=== PATIENT | female | born 1965 | race Two or more races ===

== ENCOUNTER 2016-12-08 15:44 | Inpatient (IN) | payer MEDICAID ==
[~2016-12-08] VITALS: Ht 165.1 cm; Wt 76.3 kg
[~2016-12-08 15:44] MED LIST: CEPH-37 PO; CYCL0.05 OP; INSU70IN9 SC; INSUINJ; LEVO150T10 PO; LOS50T PO
[2016-12-08] MEDS ORDERED: SODIUM CHLORIDE 0.9% 1,000 ML IV ONE (16:38)
[2016-12-08 17:04] LABS: Basophils # (auto) 0 uL; Basophils % (auto) 0.2 % (0.0-2.0); Eosinophils # (auto) 0.1 uL; Eosinophils % (auto) 0.6 % (0.0-7.0); Hematocrit 44.5 % (36.0-46.0); Lymphocytes # (auto) 2.2 uL; Lymphocytes % (auto) 27.4 % (10.0-50.0); Mean Corpuscular Hemoglobin 30.1 pg (28.0-32.0); Mean Corpuscular Hgb Conc. 33.6 g/dL (32.0-36.0); Mean Corpuscular Volume 89.6 fL (80.0-100.0); Mean Platelet Volume 8.9 fL (7.4-10.4); Monocytes # (auto) 0.3 uL; Monocytes % (auto) 4.1 % (0.0-12.0); Neutrophils # (auto) 5.5 uL; Neutrophils % (auto) 67.7 % (37.0-80.0); Platelet Count (auto) 309 10^3/uL (140-450); Red Cell Distribution Width 11.9 % (11.6-16.0); White Blood Cell 8.1 10^3/uL (4.4-10.8)
[2016-12-08 17:25] LABS: Albumin 4.3 g/dL (3.4-5.0); Calcium 10.8 mg/dL (8.5-10.1); Magnesium 2.3 mg/dL (1.6-2.6); Potassium 3.9 mmol/L (3.5-5.1)
[2016-12-08 17:27] LABS: BUN/Creatinine Ratio 23.5
[2016-12-08 17:38] LABS: Bilirubin, Total 1.1 mg/dL (0.2-1.0); Total Protein 8.3 g/dL (6.4-8.2)
[2016-12-08] MEDS ORDERED: SODIUM CHLORIDE 0.9% 2,000 ML IV ONE (17:45)
[2016-12-08] MEDS ORDERED: DEXTROSE (50%) 50ML SYRG IV PRN (20:00)
[2016-12-08 20:14] VITALS: BP 139/87
[2016-12-08] MEDS: SODIUM CHLORIDE 0.9% 1,000 ML IV SCH (20:33)
[2016-12-08 21:07] VITALS: BP 139/87
[2016-12-08] MEDS: CYCLOSPORINE 0.05% OP SCH (21:51)
[2016-12-08] MEDS: LOSARTAN POTASSIUM 50 MG TAB PO SCH (21:51)
[2016-12-08] MEDS: ZOLPIDEM TARTRATE 5 MG TAB PO PRN (21:51)
[2016-12-08] MEDS: ACCU-CHEK COMFORT CURVE STRIP VI SCH (21:52)
[2016-12-08] MEDS: InsuLIN REG 1unit/0.01ml Soln (100units/ml) SC SCH (21:55)
[2016-12-09 05:12] VITALS: BP 119/62
[2016-12-09] MEDS: LEVOTHYROXINE SODIUM 50 MCG TAB PO SCH (06:38)
[2016-12-09] MEDS: ACCU-CHEK COMFORT CURVE STRIP VI SCH ×5 (06:38→22:13)
[2016-12-09] MEDS: InsuLIN REG 1unit/0.01ml Soln (100units/ml) SC SCH ×5 (06:46→22:24)
[2016-12-09] MEDS ORDERED: INSULIN 70/30 1unit/0.01ml Susp (100units/ml) SC SCH (07:00)
[2016-12-09 07:13] LABS: Basophils # (auto) 0 uL; Basophils % (auto) 0.7 % (0.0-2.0); Eosinophils # (auto) 0.1 uL; Eosinophils % (auto) 3.3 % (0.0-7.0); Hematocrit 37.4 % (36.0-46.0); Hemoglobin 12.6 g/dL (12.2-16.2); Lymphocytes # (auto) 2.1 uL; Lymphocytes % (auto) 46.7 % (10.0-50.0); Mean Corpuscular Hemoglobin 30.5 pg (28.0-32.0); Mean Corpuscular Hgb Conc. 33.7 g/dL (32.0-36.0); Mean Corpuscular Volume 90.3 fL (80.0-100.0); Mean Platelet Volume 8.1 fL (7.4-10.4); Monocytes # (auto) 0.3 uL; Monocytes % (auto) 6.9 % (0.0-12.0); Neutrophils # (auto) 1.9 uL; Neutrophils % (auto) 42.4 % (37.0-80.0); Platelet Count (auto) 247 10^3/uL (140-450); Red Cell Distribution Width 12.2 % (11.6-16.0); White Blood Cell 4.4 10^3/uL (4.4-10.8)
[2016-12-09 07:38] LABS: Calcium 8.5 mg/dL (8.5-10.1); Potassium 3.8 mmol/L (3.5-5.1)
[2016-12-09 07:40] LABS: BUN/Creatinine Ratio 32.6
[2016-12-09 08:34] VITALS: BP 125/65
[2016-12-09] MEDS: SODIUM CHLORIDE 0.9% 1,000 ML IV SCH (09:20)
[2016-12-09] MEDS: CYCLOSPORINE 0.05% OP SCH ×2 (10:00→22:24)
[2016-12-09] MEDS: LOSARTAN POTASSIUM 50 MG TAB PO SCH ×2 (10:32→22:13)
[2016-12-09 12:47] VITALS: BP 123/61
[2016-12-09 14:19] LABS: Urine Bilirubin Negative (Negative); Urine Blood Negative /uL (Negative); Urine Color Yellow (Yellow); Urine Glucose 4+ mg/dL (Normal); Urine Ketone Negative (Negative); Urine Nitrite Negative (Negative); Urine RBC <1 /hpf (0 - 4); Urine Squamous Epithelial Cell FEW /hpf (<5); Urine Urobilinogen Normal (Negative); Urine pH 5.5 (5.0-8.0)
[2016-12-09] MEDS ORDERED: LORazepam 2MG/ML-1ML VIAL IV ONE (14:45)
[2016-12-09 16:35] VITALS: BP 141/71
[2016-12-09 22:00] VITALS: BP 127/68
[2016-12-09] MEDS: INSULIN DETEMIR(LEVEMIR) 1unit/0.01ml Soln (100units/ml) SC SCH (22:13)
[2016-12-09] MEDS: ZOLPIDEM TARTRATE 5 MG TAB PO PRN (23:03)
[2016-12-10 05:47] VITALS: BP 108/69
[2016-12-10] MEDS: InsuLIN REG 1unit/0.01ml Soln (100units/ml) SC SCH ×2 (06:35→11:27)
[2016-12-10] MEDS: LEVOTHYROXINE SODIUM 50 MCG TAB PO SCH (06:35)
[2016-12-10] MEDS: ACCU-CHEK COMFORT CURVE STRIP VI SCH ×2 (06:35→11:27)
[2016-12-10 07:22] LABS: Potassium 3.7 mmol/L (3.5-5.1)
[2016-12-10 07:33] LABS: BUN/Creatinine Ratio 26.4; Calcium 9.2 mg/dL (8.5-10.1)
[2016-12-10 08:43] VITALS: BP 144/84
[2016-12-10] MEDS: CYCLOSPORINE 0.05% OP SCH (08:57)
[2016-12-10] MEDS: LOSARTAN POTASSIUM 50 MG TAB PO SCH (08:58)
[2016-12-10] MEDS: INSULIN DETEMIR(LEVEMIR) 1unit/0.01ml Soln (100units/ml) SC SCH (10:00)
== END 2016-12-10 12:54 | disposition home or self-care (01) | DRG 47 ==
LOC: ER 15:44 → OVERFLOW 15:45 → SUATTDRO 18:49 → CENTRAL 19:30
PROVIDERS: ADMIT Nurse Practitioner Acute Care; ATTEND Internal Medicine
DX: G45.9 Transient cerebral ischemic attack, unspecified (principal); E11.65 Type 2 diabetes mellitus with hyperglycemia; I10 Essential (primary) hypertension; E87.1 Hypo-osmolality and hyponatremia; E78.5 Hyperlipidemia, unspecified; E83.52 Hypercalcemia; E66.9 Obesity, unspecified; H91.92 Unspecified hearing loss, left ear; E03.9 Hypothyroidism, unspecified; Z87.442 Personal history of urinary calculi; Z79.4 Long term (current) use of insulin; Z82.49 Family history of ischemic heart disease and other diseases of the circulatory system; Z83.3 Family history of diabetes mellitus; Z82.3 Family history of stroke; Z68.28 Body mass index [BMI] 28.0-28.9, adult; Z86.73 Personal history of transient ischemic attack (TIA), and cerebral infarction without residual deficits
CPT/HCPCS: 36415; 70450; 70551; 71020; 80048; 80053; 81001; 82962; 83036; 83735; 83970; 84443; 85025; 93005; 94761; 96360; J1815

== ENCOUNTER 2017-02-03 03:26 | Inpatient (IN) | payer MEDICAID ==
[~2017-02-03] VITALS: Ht 167.6 cm; Wt 82.4 kg
[2017-02-03 04:12] LABS: Basophils # (auto) 0 uL; Basophils % (auto) 0.2 % (0.0-2.0); CONDITION Y; Eosinophils # (auto) 0 uL; Eosinophils % (auto) 0.5 % (0.0-7.0); Hematocrit 36.6 % (36.0-46.0); Hemoglobin 12.5 g/dL (12.2-16.2); Lymphocytes # (auto) 0.9 uL; Lymphocytes % (auto) 8.5 % (10.0-50.0); Mean Corpuscular Hemoglobin 30.5 pg (28.0-32.0); Mean Corpuscular Hgb Conc. 34.2 g/dL (32.0-36.0); Mean Corpuscular Volume 89.3 fL (80.0-100.0); Mean Platelet Volume 7.9 fL (7.4-10.4); Monocytes # (auto) 0.8 uL; Monocytes % (auto) 7.6 % (0.0-12.0); Neutrophils # (auto) 8.7 uL; Neutrophils % (auto) 83.2 % (37.0-80.0); Platelet Count (auto) 307 10^3/uL (140-450); Red Cell Distribution Width 12.8 % (11.6-16.0); White Blood Cell 10.4 10^3/uL (4.4-10.8)
[2017-02-03] MEDS ORDERED: IBUPROFEN 800 MG TAB PO ONE (04:15)
[2017-02-03] MEDS ORDERED: IBUPROFEN 600 MG TAB PO ONE (04:15)
[2017-02-03 04:28] LABS: Albumin 3.4 g/dL (3.4-5.0); Anion Gap 11 (5-15); Aspartate Aminotransferase 64 U/L (15-37); BUN/Creatinine Ratio 19.4; Blood Urea Nitrogen 13 mg/dL (7-18); Calcium 8.9 mg/dL (8.5-10.1); Carbon Dioxide 25 mmol/L (21-32); Chloride 103 mmol/L (98-107); GFR African American 120 mL/min; GFR Non-African American 99 mL/min; Glucose 199 mg/dL (74-106); Magnesium 1.7 mg/dL (1.6-2.6); Potassium 4.1 mmol/L (3.5-5.1); Sodium 139 mmol/L (136-145)
[2017-02-03 04:33] LABS: Alkaline Phosphatase 149 U/L (45-117); Bilirubin, Total 1.1 mg/dL (0.2-1.0); INR 0.89 (0.9-1.15); Partial Thromboplastin Time 23.3 sec (22.64-33.71); Prothrombin Time 9.7 sec (9.37-12.3); Total Protein 7.4 g/dL (6.4-8.2)
[2017-02-03] MEDS ORDERED: metroNIDAZOLE 500 MG TAB PO ONE (05:15)
[2017-02-03] MEDS ORDERED: SODIUM CHLORIDE 0.9% 1,000 ML IV ONE (05:15)
[2017-02-03] MEDS ORDERED: cefTRIAXone 1GM/50ML D5W 50 ML IV ONE (05:15)
[2017-02-03 05:18] LABS: B-Type Natriuretic Peptide 47.38 pg/mL (0-100)
[2017-02-03 05:27] LABS: Temperature: 22.5 C (20.0-25.0)
[2017-02-03 05:28] LABS: Urine Bilirubin Negative (Negative); Urine Blood Negative /uL (Negative); Urine Color Yellow (Yellow); Urine Ketone Negative (Negative); Urine RBC <1 /hpf (0 - 4); Urine Squamous Epithelial Cell FEW /hpf (<5); Urine Urobilinogen Normal (Negative)
[2017-02-03 05:29] LABS: Urine Glucose 3+ mg/dL (Normal); Urine Nitrite POSITIVE (Negative)
[2017-02-03] MEDS ORDERED: ACETAMINOPHEN 325 MG TAB PO ONE ×2 (11:03→11:15)
[2017-02-03] MEDS ORDERED: ONDANSETRON HCL 4 MG/2 ML VIAL ONE (11:09)
[2017-02-03] MEDS ORDERED: VANCOMYCIN PER PHARMACY 0 MG IV SCH (11:15)
[2017-02-03] MEDS ORDERED: SODIUM CHLORIDE 0.9% 2,000 ML IV ONE ×2 (11:15)
[2017-02-03] MEDS ORDERED: ACETAMINOPHEN 650 MG RECT SUPP PR PRN (11:15)
[2017-02-03] MEDS ORDERED: NOREPINEPHRINE BITARTRATE 250 ML IV SCH (11:15)
[2017-02-03] MEDS ORDERED: NITROGLYCERIN 0.4 MG SL TAB SL PRN (11:30)
[2017-02-03] MEDS ORDERED: DEXTROSE (50%) 50ML SYRG IV PRN (11:30)
[2017-02-03] MEDS ORDERED: MORPHINE SULF INJ 2 MG/ML SYRINGE 1ML IV PRN (11:30)
[2017-02-03] MEDS ORDERED: ONDANSETRON HCL 4 MG/2 ML VIAL IV ONE (11:30)
[2017-02-03] MEDS: VANCOMYCIN 1GM/250ML D5W 250 ML IV SCH (12:30)
[2017-02-03] MEDS: FAMOTIDINE 20 MG TAB PO SCH ×2 (12:30→21:59)
[2017-02-03] MEDS: ACCU-CHEK COMFORT CURVE STRIP VI SCH ×3 (12:30→22:00)
[2017-02-03] MEDS: SODIUM CHLORIDE 0.9% 1,000 ML IV SCH ×2 (12:30→21:58)
[2017-02-03] MEDS: InsuLIN REG 1unit/0.01ml Soln (100units/ml) SC SCH ×3 (12:33→22:00)
[2017-02-03 13:58] LABS: Lactic Acid w/Reflex 2.3 mmol/L (0.4-2.0)
[2017-02-03 14:26] LABS: REFLEX LACTIC ACID YES OR NO YES
[2017-02-03] MEDS: IBUPROFEN 100MG/5ML ORAL SUSP 100 MG/5 ML UD PO PRN (15:50)
[2017-02-03] MEDS: ACETAMINOPHEN 325 MG TAB PO PRN (15:51)
[2017-02-03] MEDS: ONDANSETRON HCL 4 MG/2 ML VIAL IV PRN ×2 (15:51→22:04)
[2017-02-03 17:11] VITALS: BP 163/78
[2017-02-03 17:40] VITALS: BP 163/78
[2017-02-03] MEDS ORDERED: cloNIDine HCL 0.1 MG TAB PO PRN (18:00)
[2017-02-03] MEDS: INSULIN 70/30 1unit/0.01ml Susp (100units/ml) SC SCH (18:27)
[2017-02-03 20:50] LABS: Lactic Acid w/Reflex 5.1 mmol/L (0.4-2.0)
[2017-02-03 21:19] LABS: REFLEX LACTIC ACID YES OR NO YES
[2017-02-03 21:30] VITALS: BP 124/62
[2017-02-04] VITALS (7 sets, daily range): BP systolic 100–162; BP diastolic 53–75
[2017-02-04] MEDS: VANCOMYCIN 1GM/250ML D5W 250 ML IV SCH ×2 (00:01→12:03)
[2017-02-04] MEDS: ACETAMINOPHEN 325 MG TAB PO PRN ×2 (00:08→18:20)
[2017-02-04] MEDS: TEMAZEPAM 15 MG CAP PO PRN ×2 (00:09→22:15)
[2017-02-04] MEDS ORDERED: IBUPROFEN 100MG/5ML ORAL SUSP 100 MG/5 ML UD ONE ×3 (01:26→01:30)
[2017-02-04] MEDS: IBUPROFEN 100MG/5ML ORAL SUSP 100 MG/5 ML UD PO PRN ×2 (01:35→16:27)
[2017-02-04] MEDS: SODIUM CHLORIDE 0.9% 1,000 ML IV SCH ×2 (04:26→09:20)
[2017-02-04] MEDS: LEVOTHYROXINE SODIUM 50 MCG TAB PO SCH (06:06)
[2017-02-04] MEDS: InsuLIN REG 1unit/0.01ml Soln (100units/ml) SC SCH ×4 (06:11→21:48)
[2017-02-04] MEDS: ACCU-CHEK COMFORT CURVE STRIP VI SCH ×4 (06:11→21:42)
[2017-02-04 07:03] LABS: Basophils # (auto) 0 uL; Basophils % (auto) 0.4 % (0.0-2.0); CONDITION Y; Eosinophils # (auto) 0 uL; Eosinophils % (auto) 0.1 % (0.0-7.0); Hemoglobin 11.3 g/dL (12.2-16.2); Lymphocytes # (auto) 1.3 uL; Lymphocytes % (auto) 12.5 % (10.0-50.0); Mean Corpuscular Hemoglobin 30.7 pg (28.0-32.0); Mean Corpuscular Hgb Conc. 34.2 g/dL (32.0-36.0); Mean Corpuscular Volume 89.9 fL (80.0-100.0); Mean Platelet Volume 8.1 fL (7.4-10.4); Monocytes # (auto) 0.7 uL; Monocytes % (auto) 6.3 % (0.0-12.0); Neutrophils # (auto) 8.3 uL; Neutrophils % (auto) 80.7 % (37.0-80.0); Platelet Count (auto) 247 10^3/uL (140-450); Red Cell Distribution Width 12.8 % (11.6-16.0); White Blood Cell 10.3 10^3/uL (4.4-10.8)
[2017-02-04 07:23] LABS: Albumin 2.7 g/dL (3.4-5.0); BUN/Creatinine Ratio 15.5; Calcium 8.1 mg/dL (8.5-10.1); Potassium 3.6 mmol/L (3.5-5.1)
[2017-02-04 07:57] LABS: Bilirubin, Total 0.9 mg/dL (0.2-1.0); Total Protein 6.4 g/dL (6.4-8.2)
[2017-02-04] MEDS: INSULIN 70/30 1unit/0.01ml Susp (100units/ml) SC SCH ×2 (08:04→17:24)
[2017-02-04] MEDS: cefTRIAXone 1GM/50ML D5W 50 ML IV SCH (09:20)
[2017-02-04] MEDS: FAMOTIDINE 20 MG TAB PO SCH ×2 (09:22→21:42)
[2017-02-04] MEDS: MULTIPLE VITAMIN TAB PO SCH (09:22)
[2017-02-04] MEDS: LOSARTAN POTASSIUM 50 MG TAB PO SCH (09:23)
[2017-02-05] MEDS: VANCOMYCIN 1GM/250ML D5W 250 ML IV SCH (00:06)
[2017-02-05 05:00] VITALS: BP 127/73
[2017-02-05] MEDS: LEVOTHYROXINE SODIUM 50 MCG TAB PO SCH (06:15)
[2017-02-05] MEDS: ACCU-CHEK COMFORT CURVE STRIP VI SCH ×4 (06:18→21:59)
[2017-02-05] MEDS: InsuLIN REG 1unit/0.01ml Soln (100units/ml) SC SCH ×4 (06:19→21:59)
[2017-02-05 07:12] LABS: Basophils # (auto) 0 uL; Basophils % (auto) 0.4 % (0.0-2.0); CONDITION Y; Eosinophils # (auto) 0.1 uL; Eosinophils % (auto) 1.2 % (0.0-7.0); Hematocrit 30.8 % (36.0-46.0); Hemoglobin 10.5 g/dL (12.2-16.2); Lymphocytes # (auto) 1.2 uL; Lymphocytes % (auto) 16.4 % (10.0-50.0); Mean Corpuscular Hemoglobin 30.8 pg (28.0-32.0); Mean Corpuscular Hgb Conc. 34.2 g/dL (32.0-36.0); Mean Platelet Volume 8.3 fL (7.4-10.4); Monocytes # (auto) 0.5 uL; Neutrophils # (auto) 5.4 uL; Platelet Count (auto) 202 10^3/uL (140-450); White Blood Cell 7.2 10^3/uL (4.4-10.8)
[2017-02-05 07:44] LABS: Albumin 2.6 g/dL (3.4-5.0); BUN/Creatinine Ratio 20.5; Bilirubin, Total 0.4 mg/dL (0.2-1.0); Calcium 8.5 mg/dL (8.5-10.1); Potassium 3.7 mmol/L (3.5-5.1)
[2017-02-05 08:00] VITALS: BP 133/69
[2017-02-05] MEDS: INSULIN 70/30 1unit/0.01ml Susp (100units/ml) SC SCH (08:00)
[2017-02-05] MEDS ORDERED: VANCOMYCIN 1GM/250ML D5W 250 ML IV SCH (08:00)
[2017-02-05 09:00] VITALS: BP 133/69
[2017-02-05] MEDS: cefTRIAXone 1GM/50ML D5W 50 ML IV SCH (09:00)
[2017-02-05] MEDS: FAMOTIDINE 20 MG TAB PO SCH ×2 (10:00→21:56)
[2017-02-05] MEDS: MULTIPLE VITAMIN TAB PO SCH (10:00)
[2017-02-05] MEDS: LOSARTAN POTASSIUM 50 MG TAB PO SCH (10:00)
[2017-02-05] MEDS ORDERED: SODIUM CHLORIDE 0.9% 1,000 ML IV SCH (11:27)
[2017-02-05 13:00] VITALS: BP 170/91
[2017-02-05 17:00] VITALS: BP 162/87
[2017-02-05] MEDS ORDERED: OPHTHALMIC IRRIGATION SOLN 30ML EACHEYE PRN ×2 (17:45→17:57)
[2017-02-05] MEDS: TEMAZEPAM 15 MG CAP PO PRN (21:57)
[2017-02-05 21:59] VITALS: BP 144/70
[2017-02-06 05:15] VITALS: BP 149/80
[2017-02-06] MEDS: ACCU-CHEK COMFORT CURVE STRIP VI SCH ×4 (06:23→22:03)
[2017-02-06] MEDS: InsuLIN REG 1unit/0.01ml Soln (100units/ml) SC SCH ×4 (06:23→22:03)
[2017-02-06] MEDS: LEVOTHYROXINE SODIUM 50 MCG TAB PO SCH (06:26)
[2017-02-06 07:39] LABS: Basophils # (auto) 0 uL; Basophils % (auto) 0.5 % (0.0-2.0); CONDITION Y; Eosinophils # (auto) 0.1 uL; Eosinophils % (auto) 1.2 % (0.0-7.0); Hematocrit 32.9 % (36.0-46.0); Hemoglobin 11.1 g/dL (12.2-16.2); Lymphocytes # (auto) 1.5 uL; Mean Corpuscular Hemoglobin 30.8 pg (28.0-32.0); Mean Corpuscular Hgb Conc. 33.8 g/dL (32.0-36.0); Mean Platelet Volume 8.5 fL (7.4-10.4); Monocytes # (auto) 0.5 uL; Monocytes % (auto) 10.2 % (0.0-12.0); Neutrophils # (auto) 3.2 uL; Neutrophils % (auto) 60.1 % (37.0-80.0); Platelet Count (auto) 235 10^3/uL (140-450); Red Cell Distribution Width 12.3 % (11.6-16.0); White Blood Cell 5.4 10^3/uL (4.4-10.8)
[2017-02-06 07:46] LABS: BUN/Creatinine Ratio 21.4; Calcium 8.6 mg/dL (8.5-10.1); Potassium 3.6 mmol/L (3.5-5.1)
[2017-02-06 08:00] VITALS: BP 175/76
[2017-02-06] MEDS: cefTRIAXone 1GM/50ML D5W 50 ML IV SCH (10:24)
[2017-02-06] MEDS: MULTIPLE VITAMIN TAB PO SCH (10:26)
[2017-02-06] MEDS: FAMOTIDINE 20 MG TAB PO SCH ×2 (10:26→22:03)
[2017-02-06] MEDS: LOSARTAN POTASSIUM 50 MG TAB PO SCH ×2 (10:26→22:03)
[2017-02-06] MEDS ORDERED: SODIUM CHLORIDE 0.9% 1,000 ML IV SCH (11:27)
[2017-02-06 12:53] VITALS: BP 175/76
[2017-02-06 17:04] VITALS: BP 167/93
[2017-02-06 20:00] VITALS: BP 166/77
[2017-02-06 22:00] VITALS: BP 166/77
[2017-02-06] MEDS: TEMAZEPAM 15 MG CAP PO PRN (22:02)
[2017-02-07 05:00] VITALS: BP 137/75
[2017-02-07] MEDS: LEVOTHYROXINE SODIUM 50 MCG TAB PO SCH (06:09)
[2017-02-07] MEDS: InsuLIN REG 1unit/0.01ml Soln (100units/ml) SC SCH ×2 (06:09→11:30)
[2017-02-07] MEDS: ACCU-CHEK COMFORT CURVE STRIP VI SCH ×2 (06:09→11:30)
[2017-02-07 08:00] VITALS: BP 112/68
[2017-02-07 09:00] VITALS: BP 150/78
[2017-02-07] MEDS: LOSARTAN POTASSIUM 50 MG TAB PO SCH (09:36)
[2017-02-07] MEDS: cefTRIAXone 1GM/50ML D5W 50 ML IV SCH (09:37)
[2017-02-07] MEDS: MULTIPLE VITAMIN TAB PO SCH (09:37)
[2017-02-07] MEDS: FAMOTIDINE 20 MG TAB PO SCH (09:37)
[2017-02-07] MEDS ORDERED: LEVO500T21 PO (10:32)
[2017-02-07] MEDS ORDERED: SODIUM CHLORIDE 0.9% 1,000 ML IV SCH (11:27)
== END 2017-02-07 13:25 | disposition home or self-care (01) | DRG 720 ==
LOC: EDBD 03:26 → EDSEX 03:26 → ER 03:34 → TELE 03:35 → TELE-WESTW 17:36
PROVIDERS: ADMIT Internal Medicine; ATTEND Internal Medicine
DX: A41.9 Sepsis, unspecified organism (principal); E10.65 Type 1 diabetes mellitus with hyperglycemia; I10 Essential (primary) hypertension; N39.0 Urinary tract infection, site not specified; E03.9 Hypothyroidism, unspecified; E78.5 Hyperlipidemia, unspecified; E86.0 Dehydration; N82.3 Fistula of vagina to large intestine; B96.1 Klebsiella pneumoniae [K. pneumoniae] as the cause of diseases classified elsewhere; E78.00 Pure hypercholesterolemia, unspecified; K58.0 Irritable bowel syndrome with diarrhea; Z79.4 Long term (current) use of insulin; Z82.3 Family history of stroke; Z82.49 Family history of ischemic heart disease and other diseases of the circulatory system; Z83.3 Family history of diabetes mellitus; Z90.49 Acquired absence of other specified parts of digestive tract; Z86.73 Personal history of transient ischemic attack (TIA), and cerebral infarction without residual deficits; Z87.442 Personal history of urinary calculi; Z90.710 Acquired absence of both cervix and uterus; Z88.5 Allergy status to narcotic agent; Z88.8 Allergy status to other drugs, medicaments and biological substances; Z83.49 Family history of other endocrine, nutritional and metabolic diseases; Z71.89 Other specified counseling
CPT/HCPCS: 36415; 71010; 74176; 80048; 80053; 80061; 80202; 81001; 82962; 83036; 83605; 83735; 83880; 84443; 84484; 85025; 85379; 85610; 85730; 87040; 87081; 87086; 87088; 87186; 93005; 93306; 96361; 96365; 96375; J0696; J1815; J2405

== ENCOUNTER 2017-08-22 12:28 | Emergency (ER) | payer MEDICAID ==
[~2017-08-22] VITALS: Ht 157.5 cm; Wt 75.7 kg
[~2017-08-22 12:28] MED LIST changes: -CYCL0.05 OP; +LEVO500T21 PO
[2017-08-22 14:22] VITALS: BP 151/76
[2017-08-22 16:11] LABS: Basophils # (auto) 0 uL; Basophils % (auto) 0.4 % (0.0-2.0); Eosinophils # (auto) 0 uL; Eosinophils % (auto) 0.6 % (0.0-7.0); Hematocrit 40.3 % (36.0-46.0); Hemoglobin 13.8 g/dL (12.2-16.2); Lymphocytes % (auto) 33.1 % (10.0-50.0); Mean Corpuscular Hemoglobin 30.6 pg (28.0-32.0); Mean Corpuscular Hgb Conc. 34.1 g/dL (32.0-36.0); Mean Corpuscular Volume 89.6 fL (80.0-100.0); Monocytes # (auto) 0.5 uL; Monocytes % (auto) 8.9 % (0.0-12.0); Neutrophils # (auto) 3.4 uL; Nucleated Red Blood Cells % 0.1 %; Platelet Count (auto) 286 10^3/uL (140-450); Red Cell Distribution Width 12.1 % (11.8-14.3); White Blood Cell 5.9 10^3/uL (4.4-10.8)
[2017-08-22 16:16] LABS: Albumin 3.7 g/dL (3.4-5.0); Calcium 9.5 mg/dL (8.5-10.1); Potassium 3.4 mmol/L (3.5-5.1)
[2017-08-22 16:16] LABS: Urine Bacteria FEW /hpf (None Seen); Urine Blood 2+ /uL (Negative); Urine Mucus FEW (None Seen); Urine Specific Gravity 1.024 (1.001-1.035); Urine WBC 34 /hpf (0 - 5)
[2017-08-22 16:20] LABS: BUN/Creatinine Ratio 21.1; Bilirubin, Total 0.8 mg/dL (0.2-1.0)
== END 2017-08-22 17:31 | disposition home or self-care (01) ==
LOC: ER 12:28
DX: N39.0 Urinary tract infection, site not specified (principal); N64.4 Mastodynia; E11.9 Type 2 diabetes mellitus without complications; E78.5 Hyperlipidemia, unspecified; I10 Essential (primary) hypertension; E07.9 Disorder of thyroid, unspecified; Z87.442 Personal history of urinary calculi; Z98.82 Breast implant status; Z87.440 Personal history of urinary (tract) infections; Z90.710 Acquired absence of both cervix and uterus
CPT/HCPCS: 36415; 76642; 80053; 81001; 85025

== ENCOUNTER 2017-11-11 16:31 | Emergency (ER) | payer SELFPAY ==
[~2017-11-11] VITALS: Ht 165.1 cm; Wt 77.1 kg
[2017-11-11] MEDS ORDERED: SODIUM CHLORIDE 0.9% 1,000 ML IV ONE (17:01)
[2017-11-11] MEDS ORDERED: ACETAMINOPHEN 650 mg PER 20 mL UD PO ONE (17:15)
[2017-11-11 17:40] LABS: Red Cell Distribution Width 12.9 % (11.8-14.3)
[2017-11-11 17:43] LABS: Hematocrit 39.9 % (36.0-46.0); Hemoglobin 13.3 g/dL (12.2-16.2); Mean Corpuscular Hemoglobin 29.9 pg (28.0-32.0); Mean Corpuscular Hgb Conc. 33.5 g/dL (32.0-36.0); Mean Corpuscular Volume 89.5 fL (80.0-100.0); Platelet Count (auto) 191 10^3/uL (140-450); Red Blood Cells 4.46 10^6/uL (4.0-5.20)
[2017-11-11 17:50] LABS: Albumin 3.4 g/dL (3.4-5.0); BUN/Creatinine Ratio 15.3; Calcium 8.6 mg/dL (8.5-10.1); Potassium 4.3 mmol/L (3.5-5.1)
[2017-11-11 17:52] LABS: Bilirubin, Total 0.6 mg/dL (0.2-1.0); Total Protein 7.6 g/dL (6.4-8.2)
[2017-11-11 18:20] LABS: White Blood Cell 1.7 10^3/uL (4.4-10.8)
[2017-11-11 18:21] LABS: Band Neutrophils % (manual) 0; Basophils % (manual) 0 (0.0-2.0); Blast Cells 0; Eosinophils % (manual) 0 (0-7); Metamyelocytes % 0; Myelocytes % 0; Promyelocytes % 0; Reactive Lymphocytes 0
[2017-11-11 20:19] LABS: Lymphocytes % (manual) 20 (10.0-50.0); Monocytes % (manual) 10 (0-12)
[2017-11-11] MEDS ORDERED: cefTRIAXone 1GM/10ml IVPUSH 10 ML IV ONE (20:45)
[2017-11-11 22:33] LABS: Urine Bacteria NONE SEEN /hpf (None Seen); Urine Blood Negative /uL (Negative); Urine Specific Gravity 1.035 (1.001-1.035); Urine WBC <1 /hpf (0 - 5)
[2017-11-11 23:49] VITALS: BP 132/86
== END 2017-11-11 23:52 | disposition home or self-care (01) ==
LOC: ER 16:36
DX: J02.9 Acute pharyngitis, unspecified (principal); E11.65 Type 2 diabetes mellitus with hyperglycemia; E78.5 Hyperlipidemia, unspecified; I10 Essential (primary) hypertension; Z79.4 Long term (current) use of insulin; Z86.73 Personal history of transient ischemic attack (TIA), and cerebral infarction without residual deficits; Z87.442 Personal history of urinary calculi; E07.9 Disorder of thyroid, unspecified; Z90.49 Acquired absence of other specified parts of digestive tract; Z90.710 Acquired absence of both cervix and uterus
CPT/HCPCS: 36415; 71046; 80053; 81001; 83605; 85007; 85027; 87040; 87804; 96361; 96374; 99285; J7030